=== PATIENT | female | born 1945 | race Caucasian/White ===

== ENCOUNTER 2017-08-28 19:34 | Emergency (ER) | payer MEDICARE, OTHER ==
[~2017-08-28] VITALS: Ht 160 cm; Wt 63.2 kg
[2017-08-28] MEDS ORDERED: [UNRECOGNIZED DRUG - REMARK] OU (19:43)
[2017-08-28] MEDS ORDERED: ASPI-556 PO (19:43)
[2017-08-28 22:23] VITALS: BP 148/77
== END 2017-08-28 22:31 | disposition home or self-care (01) ==
LOC: EMS 19:38
DX: T18.198A Other foreign object in esophagus causing other injury, initial encounter (principal); X58.XXXA Exposure to other specified factors, initial encounter; Y93.89 Activity, other specified; Y92.89 Other specified places as the place of occurrence of the external cause; Y99.8 Other external cause status
CPT/HCPCS: 72020; 99283

== ENCOUNTER 2018-05-17 20:32 | Emergency (ER) | payer MEDICARE, OTHER ==
[~2018-05-17] VITALS: Ht 160 cm; Wt 61.4 kg
[~2018-05-17 20:32] MED LIST: ASPI-556 PO; [UNRECOGNIZED DRUG - REMARK] OU
[2018-05-17 22:34] VITALS: BP 138/73
== END 2018-05-17 23:49 | disposition home or self-care (01) ==
LOC: EMS 20:33
DX: J40 Bronchitis, not specified as acute or chronic (principal); J02.9 Acute pharyngitis, unspecified; R19.7 Diarrhea, unspecified
CPT/HCPCS: 99283

== ENCOUNTER 2018-06-05 08:48 | Emergency (ER) | payer MEDICARE ==
[~2018-06-05] VITALS: Ht 160 cm; Wt 63.2 kg
[~2018-06-05 08:48] MED LIST changes: -[UNRECOGNIZED DRUG - REMARK] OU
[2018-06-05 10:14] LABS: BASOPHILS % (AUTO) 0.8 % (0.0-2.0); EOSINOPHILS % (AUTO) 5.1 % (1.0-6.0); HEMATOCRIT 36.6 % (36-46); HEMOGLOBIN 12.6 g/dL (12.0-16.0); LYMPHOCYTES # (AUTO) 1.1 K/uL (1.0-4.8); LYMPHOCYTES % (AUTO) 22.3 % (22.0-44.0); MEAN CORPUSCULAR HEMOGLOBIN 29.7 pg (26.0-34.0); MEAN CORPUSCULAR HGB CONC 34.5 G/dL (31.0-37.0); MEAN CORPUSCULAR VOLUME 86 fL (80-100); MONOCYTES # (AUTO) 0.3 K/uL (0.1-1.0); MONOCYTES % (AUTO) 6.7 % (2.0-9.0); NEUTROPHILS # (AUTO) 3.3 K/uL (1.8-7.7); NEUTROPHILS % (AUTO) 65.1 % (40.0-70.0); PLATELET COUNT (AUTO) 171 K/uL (150-450); RED BLOOD CELL COUNT(AUTO) 4.26 MIL/uL (4.00-5.20)
[2018-06-05 10:28] LABS: ANION GAP 8 mmol/L (8-16); CARBON DIOXIDE 28 mmol/L (22-29); CHLORIDE 103 mmol/L (98-107); CREATININE 0.73 mg/dL (0.60-1.30); GLUCOSE,RANDOM 97 mg/dL (70-110); POTASSIUM 4.5 mmol/L (3.5-5.1); SODIUM SERUM 139 mmol/L (136-145); UREA NITROGEN, BLOOD 15 mg/dL (7-18)
[2018-06-05 10:32] LABS: GLOMERULAR FILTR. RATE CALC > 60 mL/min (>60)
[2018-06-05 10:40] LABS: ALANINE AMINOTRANSFERASE 39 U/L (12-78); ALBUMIN 3.5 g/dL (3.4-5.0); ALKALINE PHOSPHATASE 105 U/L (46-116); ASPARTATE AMINOTRANSFERASE 20 U/L (15-37); BILIRUBIN,TOTAL 0.5 mg/dL (0.1-1.0); LIPASE 103 U/L (73-393); TOTAL PROTEIN, SERUM 7.6 g/dL (6.4-8.2)
[2018-06-05 11:02] LABS: B-TYPE NATRIURETIC PEPTIDE 19 pg/mL (0-100)
[2018-06-05 11:22] VITALS: BP 153/63
== END 2018-06-05 11:41 | disposition home or self-care (01) ==
LOC: EMS 09:37
DX: J06.9 Acute upper respiratory infection, unspecified (principal); J40 Bronchitis, not specified as acute or chronic; R53.1 Weakness
CPT/HCPCS: 93005; 99285